=== PATIENT | female | born 1965 | race African-American/Black ===

== ENCOUNTER 2020-04-20 22:22 | Inpatient (IN) | payer MEDICAID ==
[~2020-04-20] VITALS: Ht 162.6 cm; Wt 89.5 kg
[~2020-04-20 22:22] MED LIST: CYM20 PO; HYDR-4134 PO; LOSA50TA3 PO; OXYC20TA56 PO
[2020-04-20] MEDS ORDERED: HYDROCODONE/ACETAMINOPHEN 10/325MG TABLET PO ONE (23:15)
[2020-04-20] MEDS: LIDOCAINE 5% PATCH TOP SCH (23:29)
[2020-04-20 23:32] LABS: BASOPHILS % 1.1 % (0.0-2.0); EOSINOPHILS % 8.2 % (0.0-5.0); HEMATOCRIT. 30.5 % (36.0-48.0); HEMOGLOBIN. 9.6 g/dL (12.0-16.0); LYMPHOCYTES % 27.9 % (20.0-50.0); MEAN CORPUSCULAR HEMOGLOBIN 22.7 pg (28.0-32.0); MEAN CORPUSCULAR VOLUME 72.5 fL (81.0-99.0); MONOCYTES % 5.6 % (2.0-8.0); NEUTROPHILS % 57.2 % (40.0-76.0); RED BLOOD CELL COUNT 4.21 mill/uL (4.2-5.4); RED CELL DISTRIBUTION WIDTH 28.1 % (11.6-14.6)
[2020-04-20 23:37] LABS: CHLORIDE 101 mEq/L (98-107)
[2020-04-21 00:20] LABS: PLATELET 110 x1000/uL (130-400)
[2020-04-21 00:21] LABS: PLATELET ESTIMATE DECREASED
[2020-04-21] MEDS ORDERED: CLONIDINE 0.3MG TABLET PO ONE (01:00)
[2020-04-21 08:48] LABS: BG BASE EXCESS -5.6 mmol/L (-2.0-2.0); BG DEOXYHEMOGLOBIN 18.8 % (0.0-5.0); BG FRACTION INSPIRED OXYGEN 21; BG HCO3 ACT 21.2 mmol/L (22.0-26.0); BG METHEMOGLOBIN 0.1 % (0.0-1.5); BG OXYGEN SATURATION 80.6 % (92.0-98.5); BG OXYHEMOGLOBIN 78.1 % (94.0-97.0); BG PCO2 47.2 mmHg (35.0-45.0); BG PH 7.271 (7.350-7.450); BG PO2 53.1 mmHg (75.0-100.0); BG SAMPLE SITE RIGHT BRACHIAL; BG TOTAL HEMOGLOBIN 10.8 g/dL (12.0-18.0); BG VENT MODE ROOM AIR
[2020-04-21] MEDS ORDERED: GUAIFENESIN 200MG/10ML SUGAR FREE UDC PO PRN (11:15)
[2020-04-21] MEDS ORDERED: ONDANSETRON HCL 4MG/2ML INJ IV PRN (11:15)
[2020-04-21] MEDS ORDERED: MAGNESIUM/ALUMINUM HYDROXIDE/SIMETHICONE 30ML UDC PO PRN (11:15)
[2020-04-21] MEDS ORDERED: NITROGLYCERIN 0.4MG TABLET SL SL PRN (11:15)
[2020-04-21] MEDS ORDERED: AZITHROMYCIN 500 MG in DEXT 5% WATER 250 ML IV SCH (12:00)
[2020-04-21] MEDS ORDERED: CEFTRIAXONE 1 G PREMIX 50 ML IV SCH (12:00)
[2020-04-21] MEDS ORDERED: ALBUTEROL 6.7GM HFA INHALER ORI PRN (12:00)
[2020-04-21] MEDS: LIDOCAINE 5% PATCH TOP SCH (13:27)
[2020-04-21] MEDS: ASCORBIC ACID 500 MG TABLET PO SCH ×2 (13:36→23:39)
[2020-04-21] MEDS: ASPIRIN 325MG EC TABLET PO SCH (13:41)
[2020-04-21] MEDS: ENOXAPARIN 40MG/0.4ML SYR SUBCUT SCH (13:41)
[2020-04-21] MEDS: FAMOTIDINE 20MG TABLET PO SCH (13:41)
[2020-04-21] MEDS: AMLODIPINE 10MG TABLET PO SCH (13:41)
[2020-04-21] MEDS: ZINC SULFATE 220 MG ( 50 ) CAPSULE PO SCH (13:41)
[2020-04-21] MEDS: SEVELAMER CARBONATE 800 MG TABLET PO SCH ×2 (13:42→17:14)
[2020-04-21] MEDS: HYDRALAZINE HCL 50MG TABLET PO SCH ×2 (15:06→23:38)
[2020-04-21] MEDS: CLONIDINE 0.1MG TABLET PO PRN (16:51)
[2020-04-21] MEDS ORDERED: ZOLPIDEM TARTRATE 5MG TABLET PO PRN (20:00)
[2020-04-21] MEDS ORDERED: FAMOTIDINE 20MG TABLET PO SCH (21:00)
[2020-04-21 22:45] VITALS: BP 128/77
[2020-04-22] VITALS: BP 128/77
[2020-04-22] MEDS ORDERED: TIZA2TAB5 PO (02:42)
[2020-04-22] MEDS ORDERED: PARO-66 PO (02:42)
[2020-04-22] MEDS ORDERED: GABA-531 PO (02:42)
[2020-04-22] MEDS ORDERED: CEPH250T PO (02:42)
[2020-04-22] MEDS ORDERED: CINA30TA5 PO (02:42)
[2020-04-22] MEDS ORDERED: DILT60TA3 PO (02:42)
[2020-04-22 04:00] VITALS: BP 178/81
[2020-04-22] MEDS: TRAMADOL 50MG TABLET PO PRN ×2 (05:35→21:01)
[2020-04-22] MEDS: HYDRALAZINE HCL 50MG TABLET PO SCH ×3 (06:09→22:00)
[2020-04-22 08:00] VITALS: BP 171/94
[2020-04-22] MEDS: AZITHROMYCIN 500 MG in DEXT 5% WATER 250 ML IV SCH (08:09)
[2020-04-22] MEDS: ASPIRIN 325MG EC TABLET PO SCH (08:40)
[2020-04-22] MEDS: AMLODIPINE 10MG TABLET PO SCH (08:40)
[2020-04-22] MEDS: ZINC SULFATE 220 MG ( 50 ) CAPSULE PO SCH (08:40)
[2020-04-22] MEDS: ASCORBIC ACID 500 MG TABLET PO SCH ×2 (08:40→20:55)
[2020-04-22] MEDS: FAMOTIDINE 20MG TABLET PO SCH (08:40)
[2020-04-22] MEDS: SEVELAMER CARBONATE 800 MG TABLET PO SCH ×3 (08:40→17:02)
[2020-04-22] MEDS: ENOXAPARIN 40MG/0.4ML SYR SUBCUT SCH (09:00)
[2020-04-22 09:26] LABS: BASOPHILS % 0.8 % (0.0-2.0); EOSINOPHILS % 9.6 % (0.0-5.0); HEMATOCRIT. 30.4 % (36.0-48.0); HEMOGLOBIN. 9.5 g/dL (12.0-16.0); LYMPHOCYTES % 35.2 % (20.0-50.0); MEAN CORPUSCULAR HEMOGLOBIN 22.7 pg (28.0-32.0); MEAN CORPUSCULAR VOLUME 72.8 fL (81.0-99.0); MEAN PLATELET VOLUME 8.3 fl (7.4-10.4); MONOCYTES % 5.5 % (2.0-8.0); NEUTROPHILS % 48.9 % (40.0-76.0); PLATELET 105 x1000/uL (130-400); RED BLOOD CELL COUNT 4.18 mill/uL (4.2-5.4); RED CELL DISTRIBUTION WIDTH 27.5 % (11.6-14.6)
[2020-04-22 09:31] LABS: CHLORIDE 101 mEq/L (98-107)
[2020-04-22] MEDS: CEFTRIAXONE 1,000 MG in DEXTROSE 5% WATER 50 ML IV SCH (09:35)
[2020-04-22 09:40] LABS: CREATINE KINASE 36 IU/L (26-192)
[2020-04-22 09:41] LABS: CREATINE KINASE MB FRACTION 2.3 ng/mL (0.5-3.6)
[2020-04-22 10:38] LABS: D-DIMER 1.35 mg/L FEU (<0.50); INR 1.1; PARTIAL THROMBOPLASTIN TIME 34.1 sec (23.4-31.0); PROTHROMBIN TIME 11.5 sec (9.6-11.0)
[2020-04-22 12:00] VITALS: BP 177/89
[2020-04-22 16:00] VITALS: BP 152/69
[2020-04-22] MEDS ORDERED: ALBUTEROL 6.7GM HFA INHALER ORI SCH (18:00)
[2020-04-22 20:00] VITALS: BP 177/78
[2020-04-22] MEDS: ALBUTEROL (0.083%) 2.5MG/3ML NEB HHN SCH (20:45)
[2020-04-22] MEDS ORDERED: ALBUTEROL (0.083%) 2.5MG/3ML NEB ONE (20:50)
[2020-04-23] VITALS (7 sets, daily range): BP systolic 161–213; BP diastolic 75–96
[2020-04-23] MEDS: ACETAMINOPHEN 325MG TABLET PO PRN (02:42)
[2020-04-23] MEDS: HYDRALAZINE HCL 50MG TABLET PO SCH ×2 (02:48→06:28)
[2020-04-23] MEDS: TRAMADOL 50MG TABLET PO PRN (02:54)
[2020-04-23] MEDS: ALBUTEROL (0.083%) 2.5MG/3ML NEB HHN SCH ×3 (04:40→20:20)
[2020-04-23] MEDS: SEVELAMER CARBONATE 800 MG TABLET PO SCH ×3 (06:21→16:46)
[2020-04-23 06:44] LABS: BASOPHILS % 0.8 % (0.0-2.0); EOSINOPHILS % 9.4 % (0.0-5.0); HEMATOCRIT. 30.2 % (36.0-48.0); HEMOGLOBIN. 9.2 g/dL (12.0-16.0); LYMPHOCYTES % 24.6 % (20.0-50.0); MEAN CORPUSCULAR HEMOGLOBIN 22.3 pg (28.0-32.0); MEAN CORPUSCULAR VOLUME 72.9 fL (81.0-99.0); MEAN PLATELET VOLUME 8.4 fl (7.4-10.4); MONOCYTES % 5.5 % (2.0-8.0); NEUTROPHILS % 59.7 % (40.0-76.0); PLATELET 103 x1000/uL (130-400); RED BLOOD CELL COUNT 4.14 mill/uL (4.2-5.4); RED CELL DISTRIBUTION WIDTH 26.9 % (11.6-14.6)
[2020-04-23 07:53] LABS: PHOSPHORUS 6.1 mg/dL (2.5-4.9)
[2020-04-23] MEDS: AZITHROMYCIN 500 MG in DEXT 5% WATER 250 ML IV SCH (08:11)
[2020-04-23] MEDS: ZINC SULFATE 220 MG ( 50 ) CAPSULE PO SCH (08:11)
[2020-04-23] MEDS: ASPIRIN 325MG EC TABLET PO SCH (08:11)
[2020-04-23] MEDS: FAMOTIDINE 20MG TABLET PO SCH (08:11)
[2020-04-23] MEDS: CEFTRIAXONE 1,000 MG in DEXTROSE 5% WATER 50 ML IV SCH (08:11)
[2020-04-23] MEDS: ENOXAPARIN 40MG/0.4ML SYR SUBCUT SCH (08:12)
[2020-04-23] MEDS: ASCORBIC ACID 500 MG TABLET PO SCH ×2 (08:12→21:04)
[2020-04-23] MEDS: AMLODIPINE 10MG TABLET PO SCH (08:31)
[2020-04-23] MEDS: MINOXIDIL 2.5MG TABLET PO SCH ×2 (09:15→21:05)
[2020-04-23] MEDS: CINACALCET HCL 30MG TABLET PO SCH (10:28)
[2020-04-23] MEDS: METOPROLOL TARTRATE 25MG TABLET PO SCH ×2 (10:28→21:04)
[2020-04-23] MEDS: LOSARTAN POTASSIUM 25 MG TABLET PO SCH (10:28)
[2020-04-23] MEDS: DIPHENHYDRAMINE 50MG/ML VIAL IV PRN (12:46)
[2020-04-23] MEDS: CLONIDINE 0.1MG TABLET PO PRN (14:39)
[2020-04-23] MEDS: NITROGLYCERIN OINT 1GM/INCH UDPKT TD SCH ×2 (16:46→21:05)
[2020-04-24] VITALS: BP 198/80
[2020-04-24] MEDS: TRAMADOL 50MG TABLET PO PRN (00:26)
[2020-04-24] MEDS: ACETAMINOPHEN 325MG TABLET PO PRN ×2 (00:46→08:07)
[2020-04-24] MEDS: ALBUTEROL (0.083%) 2.5MG/3ML NEB HHN SCH ×3 (02:25→22:05)
[2020-04-24 04:00] VITALS: BP 173/78
[2020-04-24] MEDS: NITROGLYCERIN OINT 1GM/INCH UDPKT TD SCH ×3 (07:02→22:46)
[2020-04-24] MEDS: SEVELAMER CARBONATE 800 MG TABLET PO SCH ×3 (07:02→17:07)
[2020-04-24] MEDS: CINACALCET HCL 30MG TABLET PO SCH (07:02)
[2020-04-24 07:55] VITALS: BP 184/86
[2020-04-24] MEDS: ENOXAPARIN 40MG/0.4ML SYR SUBCUT SCH (08:05)
[2020-04-24] MEDS: AZITHROMYCIN 500 MG in DEXT 5% WATER 250 ML IV SCH (08:05)
[2020-04-24 08:06] LABS: EOSINOPHILS % 9.8 % (0.0-5.0); HEMATOCRIT. 29.8 % (36.0-48.0); HEMOGLOBIN. 9.3 g/dL (12.0-16.0); LYMPHOCYTES % 20.4 % (20.0-50.0); MEAN CORPUSCULAR HEMOGLOBIN 22.4 pg (28.0-32.0); MEAN CORPUSCULAR VOLUME 71.8 fL (81.0-99.0); MONOCYTES % 5.7 % (2.0-8.0); NEUTROPHILS % 63.1 % (40.0-76.0); RED BLOOD CELL COUNT 4.15 mill/uL (4.2-5.4); RED CELL DISTRIBUTION WIDTH 26.9 % (11.6-14.6)
[2020-04-24] MEDS: MINOXIDIL 2.5MG TABLET PO SCH ×2 (08:06→21:00)
[2020-04-24] MEDS: ASCORBIC ACID 500 MG TABLET PO SCH ×2 (08:06→21:00)
[2020-04-24] MEDS: METOPROLOL TARTRATE 25MG TABLET PO SCH ×2 (08:06→21:00)
[2020-04-24] MEDS: FAMOTIDINE 20MG TABLET PO SCH (08:06)
[2020-04-24] MEDS: ASPIRIN 325MG EC TABLET PO SCH (08:06)
[2020-04-24] MEDS: LOSARTAN POTASSIUM 25 MG TABLET PO SCH ×2 (08:06→21:00)
[2020-04-24] MEDS: AMLODIPINE 10MG TABLET PO SCH (08:06)
[2020-04-24] MEDS: ZINC SULFATE 220 MG ( 50 ) CAPSULE PO SCH (08:06)
[2020-04-24 08:32] LABS: PHOSPHORUS 6.2 mg/dL (2.5-4.9)
[2020-04-24] MEDS ORDERED: MINOXIDIL 2.5MG TABLET PO NR (10:00)
[2020-04-24 10:44] LABS: PLATELET 107 x1000/uL (130-400)
[2020-04-24] MEDS: CEFTRIAXONE 1,000 MG in DEXTROSE 5% WATER 50 ML IV SCH (12:00)
[2020-04-24 16:00] VITALS: BP 150/73
[2020-04-24 20:00] VITALS: BP 178/88
[2020-04-25] VITALS (48 sets, daily range): BP systolic 82–200; BP diastolic 44–98
[2020-04-25] MEDS: CLONIDINE 0.1MG TABLET PO PRN (03:54)
[2020-04-25] MEDS: ALBUTEROL (0.083%) 2.5MG/3ML NEB HHN SCH ×5 (03:59→15:59)
[2020-04-25] MEDS: NITROGLYCERIN OINT 1GM/INCH UDPKT TD SCH ×3 (06:13→21:28)
[2020-04-25] MEDS: SEVELAMER CARBONATE 800 MG TABLET PO SCH ×4 (06:26→17:29)
[2020-04-25] MEDS: CINACALCET HCL 30MG TABLET PO SCH (06:26)
[2020-04-25 07:37] LABS: PHOSPHORUS 5.9 mg/dL (2.5-4.9)
[2020-04-25 07:39] LABS: EOSINOPHILS % 4.4 % (0.0-5.0); HEMATOCRIT. 30.7 % (36.0-48.0); HEMOGLOBIN. 9.7 g/dL (12.0-16.0); LYMPHOCYTES % 19.3 % (20.0-50.0); MEAN CORPUSCULAR HEMOGLOBIN 22.4 pg (28.0-32.0); MEAN CORPUSCULAR VOLUME 71.4 fL (81.0-99.0); MONOCYTES % 6.8 % (2.0-8.0); NEUTROPHILS % 68.5 % (40.0-76.0); RED CELL DISTRIBUTION WIDTH 26.1 % (11.6-14.6)
[2020-04-25] MEDS: CEFTRIAXONE 1,000 MG in DEXTROSE 5% WATER 50 ML IV SCH (09:05)
[2020-04-25] MEDS: AMLODIPINE 10MG TABLET PO SCH (09:06)
[2020-04-25] MEDS: MINOXIDIL 2.5MG TABLET PO SCH (09:06)
[2020-04-25] MEDS: FAMOTIDINE 20MG TABLET PO SCH (09:06)
[2020-04-25] MEDS: ENOXAPARIN 40MG/0.4ML SYR SUBCUT SCH (09:06)
[2020-04-25] MEDS: ASPIRIN 325MG EC TABLET PO SCH (09:06)
[2020-04-25] MEDS: ASCORBIC ACID 500 MG TABLET PO SCH ×2 (09:06→21:18)
[2020-04-25] MEDS: LOSARTAN POTASSIUM 25 MG TABLET PO SCH ×2 (09:07→21:17)
[2020-04-25] MEDS: METOPROLOL TARTRATE 25MG TABLET PO SCH ×2 (09:07→21:18)
[2020-04-25] MEDS: ZINC SULFATE 220 MG ( 50 ) CAPSULE PO SCH (09:07)
[2020-04-25] MEDS ORDERED: MINOXIDIL 2.5MG TABLET PO NR (09:50)
[2020-04-25] MEDS: AZITHROMYCIN 500 MG in DEXT 5% WATER 250 ML IV SCH (10:03)
[2020-04-25] MEDS ORDERED: HALOPERIDOL LACTATE 5MG/ML VIAL IM PRN (11:15)
[2020-04-25] MEDS ORDERED: LORAZEPAM 2MG/ML CPJ IV NR (11:30)
[2020-04-25 11:31] LABS: BG BASE EXCESS -1.7 mmol/L (-2.0-2.0); BG BILEVEL POS AIRWAY PRESSURE 15/5; BG CARBOXYHEMOGLOBIN 1.9 % (0.5-1.5); BG DEOXYHEMOGLOBIN 0.3 % (0.0-5.0); BG FRACTION INSPIRED OXYGEN 100; BG METHEMOGLOBIN 0.3 % (0.0-1.5); BG OXYGEN SATURATION 99.7 % (92.0-98.5); BG OXYHEMOGLOBIN 97.5 % (94.0-97.0); BG PCO2 38.6 mmHg (35.0-45.0); BG PH 7.393 (7.350-7.450); BG PO2 369.6 mmHg (75.0-100.0); BG SAMPLE SITE RIGHT RADIAL; BG TOTAL HEMOGLOBIN 11.2 g/dL (12.0-18.0); BG VENT MODE MASK - BIPAP
[2020-04-25] MEDS: PROPOFOL 10MG/ML 100ML 100 ML IV PRN ×3 (12:51→22:43)
[2020-04-25] MEDS ORDERED: CLONIDINE HCL 0.3MG/24HR PATCH TD SCH (13:00)
[2020-04-25 13:11] LABS: BG BASE EXCESS -2.7 mmol/L (-2.0-2.0); BG CARBOXYHEMOGLOBIN 2.2 % (0.5-1.5); BG DEOXYHEMOGLOBIN 2.5 % (0.0-5.0); BG FRACTION INSPIRED OXYGEN 60; BG HCO3 ACT 22.3 mmol/L (22.0-26.0); BG METHEMOGLOBIN 0.3 % (0.0-1.5); BG OXYGEN SATURATION 97.4 % (92.0-98.5); BG PCO2 39.7 mmHg (35.0-45.0); BG PH 7.368 (7.350-7.450); BG PO2 104.6 mmHg (75.0-100.0); BG SAMPLE SITE RIGHT RADIAL; BG TIDAL VOLUME(mL) 500 mL; BG TOTAL HEMOGLOBIN 11.6 g/dL (12.0-18.0); BG VENT MODE VENT - A/C; BG VENT RATE 18 set
[2020-04-25] MEDS: FENTANYL CITRATE/PF 1,000 MCG in SODIUM CHLORIDE 0.9% 80 ML IV PRN ×2 (13:20→22:24)
[2020-04-25 13:38] LABS: PLATELET ESTIMATE DECREASED
[2020-04-25 13:39] LABS: MEAN PLATELET VOLUME 8.5 fl (7.4-10.4); PLATELET 82 x1000/uL (130-400)
[2020-04-25] MEDS: ACETAMINOPHEN 325MG TABLET PO PRN (14:11)
[2020-04-25] MEDS ORDERED: RACEPINEPHRINE 2.25% 0.5ML NEB VIAL HHN PRN (14:15)
[2020-04-25] MEDS: PHENYLEPHRINE 100 MG in DEXT 5% WATER 240 ML IV PRN (15:42)
[2020-04-25] MEDS: MINOXIDIL 10MG TABLET PO SCH (21:17)
[2020-04-26] VITALS (76 sets, daily range): BP systolic 76–187; BP diastolic 38–78
[2020-04-26] MEDS: PROPOFOL 10MG/ML 100ML 100 ML IV PRN ×4 (04:27→21:47)
[2020-04-26] MEDS: NITROGLYCERIN OINT 1GM/INCH UDPKT TD SCH ×3 (06:37→21:21)
[2020-04-26] MEDS: FENTANYL CITRATE/PF 1,000 MCG in SODIUM CHLORIDE 0.9% 80 ML IV PRN ×2 (07:59→20:19)
[2020-04-26] MEDS: ASPIRIN 325MG EC TABLET PO SCH (08:08)
[2020-04-26] MEDS: ZINC SULFATE 220 MG ( 50 ) CAPSULE PO SCH (08:08)
[2020-04-26] MEDS: CINACALCET HCL 30MG TABLET PO SCH (08:08)
[2020-04-26] MEDS: ASCORBIC ACID 500 MG TABLET PO SCH ×2 (08:08→21:08)
[2020-04-26] MEDS: SEVELAMER CARBONATE 800 MG TABLET PO SCH ×3 (08:08→18:10)
[2020-04-26] MEDS: PANTOPRAZOLE SODIUM 40 MG/VIAL IV SCH (08:08)
[2020-04-26] MEDS: MINOXIDIL 10MG TABLET PO SCH ×2 (08:09→21:08)
[2020-04-26] MEDS: LOSARTAN POTASSIUM 25 MG TABLET PO SCH ×2 (08:09→21:00)
[2020-04-26] MEDS: AMLODIPINE 10MG TABLET PO SCH (08:10)
[2020-04-26] MEDS: ALBUTEROL (0.083%) 2.5MG/3ML NEB HHN SCH ×3 (08:45→21:34)
[2020-04-26] MEDS: METOPROLOL TARTRATE 25MG TABLET PO SCH ×2 (09:00→21:40)
[2020-04-26] MEDS ORDERED: VANCOMYCIN 2,000 MG in DEXT 5% WATER 500 ML IV SCH (10:00)
[2020-04-26 10:04] LABS: EOSINOPHILS % 8.4 % (0.0-5.0); HEMATOCRIT. 28.1 % (36.0-48.0); HEMOGLOBIN. 8.8 g/dL (12.0-16.0); LYMPHOCYTES % 17.1 % (20.0-50.0); MEAN CORPUSCULAR HEMOGLOBIN 22.1 pg (28.0-32.0); MEAN CORPUSCULAR VOLUME 70.6 fL (81.0-99.0); MEAN PLATELET VOLUME 8.2 fl (7.4-10.4); MONOCYTES % 8.4 % (2.0-8.0); NEUTROPHILS % 65.1 % (40.0-76.0); PLATELET 104 x1000/uL (130-400); RED BLOOD CELL COUNT 3.99 mill/uL (4.2-5.4); RED CELL DISTRIBUTION WIDTH 25.5 % (11.6-14.6)
[2020-04-26 11:21] LABS: BG BASE EXCESS -1.5 mmol/L (-2.0-2.0); BG DEOXYHEMOGLOBIN 3.1 % (0.0-5.0); BG HCO3 ACT 22.9 mmol/L (22.0-26.0); BG METHEMOGLOBIN 0.3 % (0.0-1.5); BG OXYGEN SATURATION 96.9 % (92.0-98.5); BG OXYHEMOGLOBIN 95.6 % (94.0-97.0); BG PCO2 37.2 mmHg (35.0-45.0); BG PH 7.407 (7.350-7.450); BG PO2 96.8 mmHg (75.0-100.0); BG SAMPLE SITE RIGHT BRACHIAL; BG TIDAL VOLUME(mL) 500 mL; BG TOTAL HEMOGLOBIN 9.6 g/dL (12.0-18.0); BG VENT MODE VENT - A/C; BG VENT RATE 18 set
[2020-04-26] MEDS: PIPERACILLIN/TAZOBACTAM 2.25 G in DEXTROSE 5% WATER 50 ML IV SCH ×2 (12:53→21:21)
[2020-04-26] MEDS: PHENYLEPHRINE 100 MG in DEXT 5% WATER 240 ML IV PRN (13:47)
[2020-04-27] VITALS (80 sets, daily range): BP systolic 82–145; BP diastolic 35–72
[2020-04-27] MEDS: ALBUTEROL (0.083%) 2.5MG/3ML NEB HHN SCH ×4 (01:19→20:31)
[2020-04-27] MEDS: PROPOFOL 10MG/ML 100ML 100 ML IV PRN ×3 (03:44→17:36)
[2020-04-27] MEDS: ACETAMINOPHEN 325MG TABLET PO PRN (03:58)
[2020-04-27] MEDS: PIPERACILLIN/TAZOBACTAM 2.25 G in DEXTROSE 5% WATER 50 ML IV SCH ×3 (05:16→21:01)
[2020-04-27] MEDS: NITROGLYCERIN OINT 1GM/INCH UDPKT TD SCH (05:17)
[2020-04-27] MEDS: FENTANYL CITRATE/PF 1,000 MCG in SODIUM CHLORIDE 0.9% 80 ML IV PRN (06:57)
[2020-04-27] MEDS ORDERED: ALBUMIN HUMAN 25GM/100ML (25%) IV NR (07:00)
[2020-04-27 07:46] LABS: HEMOGLOBIN. 9.1 g/dL (12.0-16.0); MEAN CORPUSCULAR HEMOGLOBIN 22.5 pg (28.0-32.0); MEAN CORPUSCULAR VOLUME 71.9 fL (81.0-99.0); MEAN PLATELET VOLUME 8.6 fl (7.4-10.4); PLATELET 106 x1000/uL (130-400); RED BLOOD CELL COUNT 4.03 mill/uL (4.2-5.4); RED CELL DISTRIBUTION WIDTH 25.3 % (11.6-14.6)
[2020-04-27 07:57] LABS: PHOSPHORUS 6.6 mg/dL (2.5-4.9)
[2020-04-27] MEDS: LOSARTAN POTASSIUM 25 MG TABLET PO SCH ×2 (08:08→20:44)
[2020-04-27] MEDS: METOPROLOL TARTRATE 25MG TABLET PO SCH ×2 (08:09→20:44)
[2020-04-27] MEDS: AMLODIPINE 10MG TABLET PO SCH (08:10)
[2020-04-27] MEDS: ASCORBIC ACID 500 MG TABLET PO SCH ×2 (08:19→20:26)
[2020-04-27] MEDS: CINACALCET HCL 30MG TABLET PO SCH (08:19)
[2020-04-27] MEDS: ZINC SULFATE 220 MG ( 50 ) CAPSULE PO SCH (08:19)
[2020-04-27] MEDS: SEVELAMER CARBONATE 800 MG TABLET PO SCH ×3 (08:19→17:37)
[2020-04-27] MEDS: PANTOPRAZOLE SODIUM 40 MG/VIAL IV SCH (08:19)
[2020-04-27] MEDS: ASPIRIN 325MG EC TABLET PO SCH (08:19)
[2020-04-27] MEDS ORDERED: VASOPRESSIN 20 UNIT in SODIUM CHLORIDE 0.9% 99 ML IV PRN (10:00)
[2020-04-27 10:48] LABS: PLATELET ESTIMATE DECREASED
[2020-04-27 11:59] LABS: BG BASE EXCESS -3.2 mmol/L (-2.0-2.0); BG CARBOXYHEMOGLOBIN 1.5 % (0.5-1.5); BG DEOXYHEMOGLOBIN 4.2 % (0.0-5.0); BG FRACTION INSPIRED OXYGEN 60; BG HCO3 ACT 22.5 mmol/L (22.0-26.0); BG METHEMOGLOBIN 0.3 % (0.0-1.5); BG OXYGEN SATURATION 95.7 % (92.0-98.5); BG PCO2 42.7 mmHg (35.0-45.0); BG PH 7.339 (7.350-7.450); BG PO2 90.2 mmHg (75.0-100.0); BG SAMPLE SITE RIGHT RADIAL; BG TIDAL VOLUME(mL) 500 mL; BG VENT MODE VENT - A/C; BG VENT RATE 18 set
[2020-04-27] MEDS: MINOXIDIL 10MG TABLET PO SCH ×2 (14:00→21:02)
[2020-04-27] MEDS ORDERED: VANCOMYCIN 1 G PREMIX 200 ML IV SCH (14:00)
[2020-04-27 14:08] LABS: BG BASE EXCESS -1.2 mmol/L (-2.0-2.0); BG CARBOXYHEMOGLOBIN 1.1 % (0.5-1.5); BG DEOXYHEMOGLOBIN 8.6 % (0.0-5.0); BG FRACTION INSPIRED OXYGEN 60; BG HCO3 ACT 24.4 mmol/L (22.0-26.0); BG METHEMOGLOBIN 0.3 % (0.0-1.5); BG OXYGEN SATURATION 91.3 % (92.0-98.5); BG PCO2 45.1 mmHg (35.0-45.0); BG PH 7.351 (7.350-7.450); BG PO2 69.6 mmHg (75.0-100.0); BG PRESSURE SUPPORT 14; BG SAMPLE SITE RIGHT RADIAL; BG TIDAL VOLUME(mL) 500 mL; BG VENT MODE VENT - SIMV; BG VENT RATE 12 set
[2020-04-27] MEDS: PHENYLEPHRINE 100 MG in DEXT 5% WATER 240 ML IV PRN (21:03)
[2020-04-28] VITALS (85 sets, daily range): BP systolic 73–131; BP diastolic 35–97
[2020-04-28] MEDS: ALBUTEROL (0.083%) 2.5MG/3ML NEB HHN SCH ×4 (00:48→20:14)
[2020-04-28] MEDS: PROPOFOL 10MG/ML 100ML 100 ML IV PRN ×2 (00:55→07:46)
[2020-04-28] MEDS: FENTANYL CITRATE/PF 1,000 MCG in SODIUM CHLORIDE 0.9% 80 ML IV PRN (00:59)
[2020-04-28] MEDS: PIPERACILLIN/TAZOBACTAM 2.25 G in DEXTROSE 5% WATER 50 ML IV SCH ×3 (05:10→21:23)
[2020-04-28] MEDS: MINOXIDIL 10MG TABLET PO SCH ×3 (05:11→21:23)
[2020-04-28 06:41] LABS: BASOPHILS % 0.8 % (0.0-2.0); EOSINOPHILS % 12.1 % (0.0-5.0); HEMATOCRIT. 28.3 % (36.0-48.0); HEMOGLOBIN. 8.7 g/dL (12.0-16.0); MEAN CORPUSCULAR HEMOGLOBIN 22.3 pg (28.0-32.0); MEAN CORPUSCULAR VOLUME 72.4 fL (81.0-99.0); MONOCYTES % 11.4 % (2.0-8.0); NEUTROPHILS % 49.7 % (40.0-76.0); RED BLOOD CELL COUNT 3.91 mill/uL (4.2-5.4); RED CELL DISTRIBUTION WIDTH 24.9 % (11.6-14.6)
[2020-04-28] MEDS: LOSARTAN POTASSIUM 25 MG TABLET PO SCH ×2 (08:55→20:51)
[2020-04-28] MEDS: METOPROLOL TARTRATE 25MG TABLET PO SCH ×2 (08:55→20:51)
[2020-04-28] MEDS: AMLODIPINE 10MG TABLET PO SCH (08:56)
[2020-04-28] MEDS: ASPIRIN 325MG EC TABLET PO SCH (09:04)
[2020-04-28] MEDS: CINACALCET HCL 30MG TABLET PO SCH (09:04)
[2020-04-28] MEDS: ASCORBIC ACID 500 MG TABLET PO SCH ×2 (09:04→20:51)
[2020-04-28] MEDS: PANTOPRAZOLE SODIUM 40 MG/VIAL IV SCH (09:04)
[2020-04-28] MEDS: ZINC SULFATE 220 MG ( 50 ) CAPSULE PO SCH (09:04)
[2020-04-28] MEDS: SEVELAMER CARBONATE 800 MG TABLET PO SCH ×3 (09:04→17:22)
[2020-04-28 10:13] LABS: MEAN PLATELET VOLUME 8.5 fl (7.4-10.4); PLATELET 128 x1000/uL (130-400); PLATELET ESTIMATE SLIGHTLY DECREASED
[2020-04-28 11:51] LABS: BG BASE EXCESS -4.4 mmol/L (-2.0-2.0); BG CARBOXYHEMOGLOBIN 1.1 % (0.5-1.5); BG DEOXYHEMOGLOBIN 3.3 % (0.0-5.0); BG FRACTION INSPIRED OXYGEN 60; BG HCO3 ACT 20.9 mmol/L (22.0-26.0); BG METHEMOGLOBIN 0.3 % (0.0-1.5); BG OXYGEN SATURATION 96.7 % (92.0-98.5); BG OXYHEMOGLOBIN 95.3 % (94.0-97.0); BG PCO2 39.2 mmHg (35.0-45.0); BG PH 7.345 (7.350-7.450); BG PO2 98.5 mmHg (75.0-100.0); BG SAMPLE SITE RIGHT RADIAL; BG TIDAL VOLUME(mL) 500 mL; BG TOTAL HEMOGLOBIN 9.3 g/dL (12.0-18.0); BG VENT MODE VENT - A/C; BG VENT RATE 16 set
[2020-04-28] MEDS: MIDAZOLAM HCL 100 MG in DEXT 5% WATER 80 ML IV PRN (12:05)
[2020-04-29] VITALS (110 sets, daily range): BP systolic 81–182; BP diastolic 31–79
[2020-04-29] MEDS: ALBUTEROL (0.083%) 2.5MG/3ML NEB HHN SCH ×4 (02:04→20:54)
[2020-04-29] MEDS: PHENYLEPHRINE 100 MG in DEXT 5% WATER 240 ML IV PRN (04:00)
[2020-04-29] MEDS: MIDAZOLAM HCL 100 MG in DEXT 5% WATER 80 ML IV PRN (04:51)
[2020-04-29] MEDS: MINOXIDIL 10MG TABLET PO SCH ×3 (05:15→22:00)
[2020-04-29] MEDS: PIPERACILLIN/TAZOBACTAM 2.25 G in DEXTROSE 5% WATER 50 ML IV SCH ×2 (05:18→14:19)
[2020-04-29 06:19] LABS: HEMATOCRIT. 29.8 % (36.0-48.0); HEMOGLOBIN. 9.3 g/dL (12.0-16.0); MEAN CORPUSCULAR HEMOGLOBIN 22.5 pg (28.0-32.0); MEAN CORPUSCULAR VOLUME 71.9 fL (81.0-99.0); MEAN PLATELET VOLUME 8.6 fl (7.4-10.4); PLATELET 169 x1000/uL (130-400); RED BLOOD CELL COUNT 4.14 mill/uL (4.2-5.4); RED CELL DISTRIBUTION WIDTH 23.8 % (11.6-14.6)
[2020-04-29 06:24] LABS: PHOSPHORUS 7.8 mg/dL (2.5-4.9)
[2020-04-29 08:28] LABS: ATYPICAL LYMPHOCYTES 1; PLATELET ESTIMATE NORMAL
[2020-04-29] MEDS: ASCORBIC ACID 500 MG TABLET PO SCH (08:42)
[2020-04-29] MEDS: CINACALCET HCL 30MG TABLET PO SCH (08:42)
[2020-04-29] MEDS: ASPIRIN 325MG EC TABLET PO SCH (08:42)
[2020-04-29] MEDS: ZINC SULFATE 220 MG ( 50 ) CAPSULE PO SCH (08:42)
[2020-04-29] MEDS: PANTOPRAZOLE SODIUM 40 MG/VIAL IV SCH (08:42)
[2020-04-29] MEDS: SEVELAMER CARBONATE 800 MG TABLET PO SCH ×3 (08:42→18:03)
[2020-04-29] MEDS: AMLODIPINE 10MG TABLET PO SCH (08:43)
[2020-04-29] MEDS: LOSARTAN POTASSIUM 25 MG TABLET PO SCH (08:43)
[2020-04-29] MEDS: METOPROLOL TARTRATE 25MG TABLET PO SCH (08:43)
[2020-04-29 08:57] LABS: BG BASE EXCESS -5.5 mmol/L (-2.0-2.0); BG CARBOXYHEMOGLOBIN 1.7 % (0.5-1.5); BG DEOXYHEMOGLOBIN 6.3 % (0.0-5.0); BG FRACTION INSPIRED OXYGEN 50; BG HCO3 ACT 19.7 mmol/L (22.0-26.0); BG METHEMOGLOBIN 0.1 % (0.0-1.5); BG OXYGEN SATURATION 93.6 % (92.0-98.5); BG OXYHEMOGLOBIN 91.9 % (94.0-97.0); BG PCO2 37.2 mmHg (35.0-45.0); BG PH 7.341 (7.350-7.450); BG PO2 76.1 mmHg (75.0-100.0); BG SAMPLE SITE RIGHT RADIAL; BG TIDAL VOLUME(mL) 500 mL; BG TOTAL HEMOGLOBIN 10.3 g/dL (12.0-18.0); BG VENT MODE VENT - A/C; BG VENT RATE 16 set
[2020-04-29] MEDS: FENTANYL CITRATE/PF 1,000 MCG in SODIUM CHLORIDE 0.9% 80 ML IV PRN (15:44)
[2020-04-29] MEDS ORDERED: ALTEPLASE 2MG/VIAL ITC NR (18:45)
[2020-04-30] VITALS (123 sets, daily range): BP systolic 74–191; BP diastolic 28–130
[2020-04-30] MEDS: ASCORBIC ACID 500 MG TABLET PO SCH ×3 (00:45→22:06)
[2020-04-30] MEDS: PIPERACILLIN/TAZOBACTAM 2.25 G in DEXTROSE 5% WATER 50 ML IV SCH ×4 (00:49→22:06)
[2020-04-30] MEDS: ALBUTEROL (0.083%) 2.5MG/3ML NEB HHN SCH ×2 (02:00→09:05)
[2020-04-30] MEDS: PHENYLEPHRINE 100 MG in DEXT 5% WATER 240 ML IV PRN (02:56)
[2020-04-30] MEDS: MINOXIDIL 10MG TABLET PO SCH (05:58)
[2020-04-30 07:50] LABS: BASOPHILS % 1.3 % (0.0-2.0); EOSINOPHILS % 11.9 % (0.0-5.0); HEMATOCRIT. 30.7 % (36.0-48.0); HEMOGLOBIN. 9.6 g/dL (12.0-16.0); LYMPHOCYTES % 20.3 % (20.0-50.0); MEAN CORPUSCULAR HEMOGLOBIN 22.4 pg (28.0-32.0); MEAN CORPUSCULAR VOLUME 71.7 fL (81.0-99.0); MEAN PLATELET VOLUME 8.3 fl (7.4-10.4); MONOCYTES % 9.5 % (2.0-8.0); PLATELET 219 x1000/uL (130-400); RED BLOOD CELL COUNT 4.28 mill/uL (4.2-5.4); RED CELL DISTRIBUTION WIDTH 24.4 % (11.6-14.6)
[2020-04-30 08:06] LABS: BG BASE EXCESS -1.8 mmol/L (-2.0-2.0); BG CARBOXYHEMOGLOBIN 0.4 % (0.5-1.5); BG DEOXYHEMOGLOBIN 7.5 % (0.0-5.0); BG FRACTION INSPIRED OXYGEN 50; BG HCO3 ACT 23.1 mmol/L (22.0-26.0); BG METHEMOGLOBIN 0.3 % (0.0-1.5); BG OXYGEN SATURATION 92.4 % (92.0-98.5); BG OXYHEMOGLOBIN 91.8 % (94.0-97.0); BG PCO2 39.7 mmHg (35.0-45.0); BG PH 7.382 (7.350-7.450); BG PO2 72.3 mmHg (75.0-100.0); BG SAMPLE SITE RIGHT RADIAL; BG TIDAL VOLUME(mL) 500 mL; BG VENT MODE VENT - A/C; BG VENT RATE 16 set
[2020-04-30] MEDS: ASPIRIN 325MG EC TABLET PO SCH (09:44)
[2020-04-30] MEDS: PANTOPRAZOLE SODIUM 40 MG/VIAL IV SCH (09:44)
[2020-04-30] MEDS: CINACALCET HCL 30MG TABLET PO SCH (09:47)
[2020-04-30] MEDS: ZINC SULFATE 220 MG ( 50 ) CAPSULE PO SCH (09:47)
[2020-04-30] MEDS: MIDODRINE HCL 5MG TABLET NG SCH ×3 (09:47→17:39)
[2020-04-30] MEDS: SEVELAMER CARBONATE 800 MG TABLET PO SCH ×3 (09:47→17:38)
[2020-04-30] MEDS: MIDAZOLAM HCL 100 MG in DEXT 5% WATER 80 ML IV PRN (17:39)
[2020-05-01] VITALS (100 sets, daily range): BP systolic 73–240; BP diastolic 21–127
[2020-05-01 05:52] LABS: HEMATOCRIT. 27.1 % (36.0-48.0); HEMOGLOBIN. 8.5 g/dL (12.0-16.0); MEAN CORPUSCULAR HEMOGLOBIN 22.3 pg (28.0-32.0); MEAN CORPUSCULAR VOLUME 71.3 fL (81.0-99.0); MEAN PLATELET VOLUME 8.8 fl (7.4-10.4); PLATELET 197 x1000/uL (130-400); RED BLOOD CELL COUNT 3.81 mill/uL (4.2-5.4); RED CELL DISTRIBUTION WIDTH 23.8 % (11.6-14.6)
[2020-05-01 06:00] LABS: PHOSPHORUS 7.5 mg/dL (2.5-4.9)
[2020-05-01] MEDS: PIPERACILLIN/TAZOBACTAM 2.25 G in DEXTROSE 5% WATER 50 ML IV SCH ×3 (06:04→23:13)
[2020-05-01] MEDS: FENTANYL CITRATE/PF 1,000 MCG in SODIUM CHLORIDE 0.9% 80 ML IV PRN (06:06)
[2020-05-01] MEDS: ALBUTEROL (0.083%) 2.5MG/3ML NEB HHN SCH ×3 (08:17→20:38)
[2020-05-01] MEDS: ZINC SULFATE 220 MG ( 50 ) CAPSULE PO SCH (08:38)
[2020-05-01] MEDS: ASPIRIN 325MG EC TABLET PO SCH (08:38)
[2020-05-01] MEDS: SEVELAMER CARBONATE 800 MG TABLET PO SCH ×3 (08:38→17:50)
[2020-05-01] MEDS: CINACALCET HCL 30MG TABLET PO SCH (08:39)
[2020-05-01] MEDS: ASCORBIC ACID 500 MG TABLET PO SCH ×2 (08:39→21:25)
[2020-05-01] MEDS: MIDODRINE HCL 5MG TABLET NG SCH ×3 (08:39→17:10)
[2020-05-01] MEDS: PANTOPRAZOLE SODIUM 40 MG/VIAL IV SCH (08:40)
[2020-05-01] MEDS ORDERED: HEPARIN SODIUM 1,000 UNIT/1ML VIAL IV SCH ×2 (13:00)
[2020-05-01 13:14] LABS: PLATELET ESTIMATE NORMAL
[2020-05-01] MEDS: PHENYLEPHRINE 100 MG in DEXT 5% WATER 240 ML IV PRN (14:10)
[2020-05-02] VITALS (52 sets, daily range): BP systolic 88–151; BP diastolic 24–108
[2020-05-02] MEDS: ALBUTEROL (0.083%) 2.5MG/3ML NEB HHN SCH ×4 (01:23→21:53)
[2020-05-02] MEDS: FENTANYL CITRATE/PF 1,000 MCG in SODIUM CHLORIDE 0.9% 80 ML IV PRN ×2 (02:00→16:14)
[2020-05-02 06:40] LABS: EOSINOPHILS % 16.1 % (0.0-5.0); HEMATOCRIT. 28.8 % (36.0-48.0); HEMOGLOBIN. 9.1 g/dL (12.0-16.0); LYMPHOCYTES % 23.3 % (20.0-50.0); MEAN CORPUSCULAR HEMOGLOBIN 22.6 pg (28.0-32.0); MEAN CORPUSCULAR VOLUME 71.6 fL (81.0-99.0); MEAN PLATELET VOLUME 8.3 fl (7.4-10.4); MONOCYTES % 6.7 % (2.0-8.0); NEUTROPHILS % 52.9 % (40.0-76.0); PLATELET 185 x1000/uL (130-400); RED BLOOD CELL COUNT 4.02 mill/uL (4.2-5.4); RED CELL DISTRIBUTION WIDTH 22.6 % (11.6-14.6)
[2020-05-02 07:07] LABS: PHOSPHORUS 6.5 mg/dL (2.5-4.9)
[2020-05-02] MEDS: MIDAZOLAM HCL 100 MG in DEXT 5% WATER 80 ML IV PRN (07:23)
[2020-05-02] MEDS: CINACALCET HCL 30MG TABLET PO SCH (08:17)
[2020-05-02] MEDS: DOCUSATE SODIUM 100MG CAPSULE PO PRN (08:17)
[2020-05-02] MEDS: PANTOPRAZOLE SODIUM 40 MG/VIAL IV SCH (08:17)
[2020-05-02] MEDS: ZINC SULFATE 220 MG ( 50 ) CAPSULE PO SCH (08:18)
[2020-05-02] MEDS: SEVELAMER CARBONATE 800 MG TABLET PO SCH ×4 (08:18→17:41)
[2020-05-02] MEDS: ASCORBIC ACID 500 MG TABLET PO SCH ×2 (08:18→21:12)
[2020-05-02] MEDS: ASPIRIN 325MG EC TABLET PO SCH (08:18)
[2020-05-02] MEDS: MIDODRINE HCL 5MG TABLET NG SCH ×3 (08:18→16:13)
[2020-05-02 08:49] LABS: BG BASE EXCESS -0.6 mmol/L (-2.0-2.0); BG CARBOXYHEMOGLOBIN 1.4 % (0.5-1.5); BG DEOXYHEMOGLOBIN 3.8 % (0.0-5.0); BG FRACTION INSPIRED OXYGEN 40; BG HCO3 ACT 23.6 mmol/L (22.0-26.0); BG METHEMOGLOBIN 0.1 % (0.0-1.5); BG OXYGEN SATURATION 96.1 % (92.0-98.5); BG OXYHEMOGLOBIN 94.7 % (94.0-97.0); BG PCO2 36.4 mmHg (35.0-45.0); BG PH 7.429 (7.350-7.450); BG PO2 90.5 mmHg (75.0-100.0); BG SAMPLE SITE RIGHT BRACHIAL; BG TIDAL VOLUME(mL) 500 mL; BG TOTAL HEMOGLOBIN 9.2 g/dL (12.0-18.0); BG VENT MODE VENT - A/C; BG VENT RATE 16 set
[2020-05-02] MEDS ORDERED: PIPERACILLIN/TAZOBACTAM 2.25 G in DEXTROSE 5% WATER 50 ML IV SCH (14:45)
[2020-05-02] MEDS ORDERED: IOHEXOL-350 100 ML BOTTLE ONE (14:59)
[2020-05-02] MEDS: PIPERACILLIN/TAZOBACTAM 2.25 G in DEXTROSE 5% WATER 50 ML IV SCH ×2 (16:13→23:38)
[2020-05-02] MEDS ORDERED: EPOETIN ALFA 4000UNITS/ML VIAL SUBCUT SCH (21:00)
[2020-05-03] VITALS (76 sets, daily range): BP systolic 77–166; BP diastolic 33–97
[2020-05-03] MEDS: ALBUTEROL (0.083%) 2.5MG/3ML NEB HHN SCH ×4 (04:14→21:03)
[2020-05-03] MEDS: PIPERACILLIN/TAZOBACTAM 2.25 G in DEXTROSE 5% WATER 50 ML IV SCH ×3 (06:00→21:35)
[2020-05-03] MEDS: MIDAZOLAM HCL 100 MG in DEXT 5% WATER 80 ML IV PRN (07:05)
[2020-05-03 07:24] LABS: BASOPHILS % 1.1 % (0.0-2.0); EOSINOPHILS % 10.8 % (0.0-5.0); HEMATOCRIT. 26.7 % (36.0-48.0); HEMOGLOBIN. 8.5 g/dL (12.0-16.0); LYMPHOCYTES % 25.8 % (20.0-50.0); MEAN CORPUSCULAR HEMOGLOBIN 22.5 pg (28.0-32.0); MEAN CORPUSCULAR VOLUME 70.7 fL (81.0-99.0); MEAN PLATELET VOLUME 8.4 fl (7.4-10.4); MONOCYTES % 6.4 % (2.0-8.0); NEUTROPHILS % 55.9 % (40.0-76.0); PLATELET 189 x1000/uL (130-400); RED BLOOD CELL COUNT 3.78 mill/uL (4.2-5.4); RED CELL DISTRIBUTION WIDTH 23.5 % (11.6-14.6)
[2020-05-03 07:38] LABS: PHOSPHORUS 6.7 mg/dL (2.5-4.9)
[2020-05-03] MEDS: MIDODRINE HCL 5MG TABLET NG SCH ×4 (09:00→17:24)
[2020-05-03] MEDS: ZINC SULFATE 220 MG ( 50 ) CAPSULE PO SCH (09:18)
[2020-05-03] MEDS: ASPIRIN 325MG EC TABLET PO SCH (09:18)
[2020-05-03] MEDS: CINACALCET HCL 30MG TABLET PO SCH (09:18)
[2020-05-03] MEDS: ASCORBIC ACID 500 MG TABLET PO SCH ×2 (09:18→21:14)
[2020-05-03] MEDS: PANTOPRAZOLE SODIUM 40 MG/VIAL IV SCH (09:18)
[2020-05-03] MEDS ORDERED: METOPROLOL TARTRATE 50MG TABLET PO SCH (09:45)
[2020-05-03] MEDS: PHENYLEPHRINE 100 MG in DEXT 5% WATER 240 ML IV PRN (11:34)
[2020-05-03] MEDS: SEVELAMER CARBONATE 800 MG TABLET PO SCH ×2 (12:24→17:23)
[2020-05-03] MEDS: FENTANYL CITRATE/PF 1,000 MCG in SODIUM CHLORIDE 0.9% 80 ML IV PRN (14:04)
[2020-05-03] MEDS: METOPROLOL TARTRATE 25MG TABLET GT SCH (21:00)
[2020-05-04] VITALS (83 sets, daily range): BP systolic 88–162; BP diastolic 41–118
[2020-05-04] MEDS: ALBUTEROL (0.083%) 2.5MG/3ML NEB HHN SCH ×2 (02:46→08:45)
[2020-05-04] MEDS: LORAZEPAM 2MG/ML CPJ IV PRN (03:27)
[2020-05-04] MEDS: PIPERACILLIN/TAZOBACTAM 2.25 G in DEXTROSE 5% WATER 50 ML IV SCH ×3 (06:26→22:00)
[2020-05-04 06:57] LABS: BASOPHILS % 1.1 % (0.0-2.0); EOSINOPHILS % 9.9 % (0.0-5.0); HEMATOCRIT. 25.4 % (36.0-48.0); HEMOGLOBIN. 8.1 g/dL (12.0-16.0); LYMPHOCYTES % 24.3 % (20.0-50.0); MEAN CORPUSCULAR HEMOGLOBIN 22.5 pg (28.0-32.0); MEAN CORPUSCULAR VOLUME 70.5 fL (81.0-99.0); MEAN PLATELET VOLUME 8.9 fl (7.4-10.4); MONOCYTES % 7.3 % (2.0-8.0); NEUTROPHILS % 57.4 % (40.0-76.0); PLATELET 190 x1000/uL (130-400); RED BLOOD CELL COUNT 3.61 mill/uL (4.2-5.4); RED CELL DISTRIBUTION WIDTH 23.8 % (11.6-14.6)
[2020-05-04 07:11] LABS: PHOSPHORUS 7.4 mg/dL (2.5-4.9)
[2020-05-04] MEDS: SEVELAMER CARBONATE 800 MG TABLET PO SCH ×3 (08:43→17:57)
[2020-05-04] MEDS: CINACALCET HCL 30MG TABLET PO SCH (08:44)
[2020-05-04] MEDS: ASCORBIC ACID 500 MG TABLET PO SCH ×2 (08:44→21:00)
[2020-05-04] MEDS: ASPIRIN 325MG EC TABLET PO SCH (08:44)
[2020-05-04] MEDS: METOPROLOL TARTRATE 25MG TABLET GT SCH ×2 (08:44→21:28)
[2020-05-04] MEDS: MIDODRINE HCL 5MG TABLET NG SCH ×3 (08:55→17:58)
[2020-05-04] MEDS: ZINC SULFATE 220 MG ( 50 ) CAPSULE PO SCH (08:55)
[2020-05-04] MEDS: PANTOPRAZOLE SODIUM 40 MG/VIAL IV SCH (08:56)
[2020-05-04] MEDS ORDERED: IPRATROPIUM/ALBUTEROL 0.5-3(2.5)MG/3ML NEB HHN PRN (11:45)
[2020-05-04] MEDS: IPRATROPIUM BROMIDE (0.02%) 0.5MG/2.5ML NEB HHN SCH ×3 (12:59→20:27)
[2020-05-04] MEDS: ACETYLCYSTEINE 100MG/ML 10% VIAL 4ML INH SCH (12:59)
[2020-05-04] MEDS: ATROPINE SULFATE 1% OPHTH 2ML SL SCH ×2 (14:17→22:00)
[2020-05-04] MEDS: MIDAZOLAM HCL 100 MG in DEXT 5% WATER 80 ML IV PRN (14:42)
[2020-05-04] MEDS: FENTANYL CITRATE/PF 1,000 MCG in SODIUM CHLORIDE 0.9% 80 ML IV PRN (14:45)
[2020-05-04] MEDS: RISPERIDONE 0.25MG TABLET PO SCH (21:29)
[2020-05-05] VITALS (79 sets, daily range): BP systolic 83–164; BP diastolic 45–91
[2020-05-05] MEDS: IPRATROPIUM BROMIDE (0.02%) 0.5MG/2.5ML NEB HHN SCH ×6 (00:23→20:01)
[2020-05-05] MEDS: ACETYLCYSTEINE 100MG/ML 10% VIAL 4ML INH SCH ×2 (00:23→08:21)
[2020-05-05 05:54] LABS: HEMATOCRIT. 25.9 % (36.0-48.0); HEMOGLOBIN. 8.2 g/dL (12.0-16.0); MEAN CORPUSCULAR HEMOGLOBIN 22.4 pg (28.0-32.0); MEAN CORPUSCULAR VOLUME 71.1 fL (81.0-99.0); MEAN PLATELET VOLUME 8.5 fl (7.4-10.4); PLATELET 194 x1000/uL (130-400); RED BLOOD CELL COUNT 3.64 mill/uL (4.2-5.4); RED CELL DISTRIBUTION WIDTH 23.2 % (11.6-14.6)
[2020-05-05] MEDS: PIPERACILLIN/TAZOBACTAM 2.25 G in DEXTROSE 5% WATER 50 ML IV SCH ×3 (06:00→21:02)
[2020-05-05] MEDS: ATROPINE SULFATE 1% OPHTH 2ML SL SCH ×2 (06:00→14:25)
[2020-05-05 06:13] LABS: PHOSPHORUS 7.9 mg/dL (2.5-4.9)
[2020-05-05] MEDS: FENTANYL CITRATE/PF 1,000 MCG in SODIUM CHLORIDE 0.9% 80 ML IV PRN (08:12)
[2020-05-05] MEDS: MIDAZOLAM HCL 100 MG in DEXT 5% WATER 80 ML IV PRN (08:13)
[2020-05-05] MEDS: ASCORBIC ACID 500 MG TABLET PO SCH ×2 (08:26→20:57)
[2020-05-05] MEDS: SEVELAMER CARBONATE 800 MG TABLET PO SCH ×3 (08:26→17:52)
[2020-05-05] MEDS: ZINC SULFATE 220 MG ( 50 ) CAPSULE PO SCH (08:26)
[2020-05-05] MEDS: ASPIRIN 325MG EC TABLET PO SCH (08:26)
[2020-05-05] MEDS: MIDODRINE HCL 5MG TABLET NG SCH ×3 (08:27→17:52)
[2020-05-05] MEDS: CINACALCET HCL 30MG TABLET PO SCH (08:27)
[2020-05-05] MEDS: PANTOPRAZOLE SODIUM 40 MG/VIAL IV SCH (08:27)
[2020-05-05] MEDS: METOPROLOL TARTRATE 25MG TABLET GT SCH ×2 (08:27→20:58)
[2020-05-05 08:28] LABS: BG BASE EXCESS -2.9 mmol/L (-2.0-2.0); BG FRACTION INSPIRED OXYGEN 40; BG HCO3 ACT 21.5 mmol/L (22.0-26.0); BG METHEMOGLOBIN 0.3 % (0.0-1.5); BG OXYHEMOGLOBIN 96.7 % (94.0-97.0); BG PCO2 35.4 mmHg (35.0-45.0); BG PH 7.401 (7.350-7.450); BG PO2 123.6 mmHg (75.0-100.0); BG SAMPLE SITE RIGHT RADIAL; BG TIDAL VOLUME(mL) 500 mL; BG TOTAL HEMOGLOBIN 7.8 g/dL (12.0-18.0); BG VENT MODE VENT - A/C; BG VENT RATE 14 set
[2020-05-05] MEDS ORDERED: LIDOCAINE HCL 1% 20ML VIAL (Pyxis) INJ ONE (08:45)
[2020-05-05 11:20] LABS: PLATELET ESTIMATE NORMAL
[2020-05-05 11:41] LABS: BG BASE EXCESS -2.4 mmol/L (-2.0-2.0); BG CARBOXYHEMOGLOBIN 1.2 % (0.5-1.5); BG FRACTION INSPIRED OXYGEN 40; BG HCO3 ACT 22.9 mmol/L (22.0-26.0); BG METHEMOGLOBIN 0.3 % (0.0-1.5); BG OXYGEN SATURATION 92.9 % (92.0-98.5); BG OXYHEMOGLOBIN 91.5 % (94.0-97.0); BG PCO2 41.6 mmHg (35.0-45.0); BG PH 7.358 (7.350-7.450); BG PO2 78.1 mmHg (75.0-100.0); BG PRESSURE SUPPORT 8; BG SAMPLE SITE RIGHT BRACHIAL; BG TOTAL HEMOGLOBIN 8.1 g/dL (12.0-18.0); BG VENT MODE VENT - CPAP
[2020-05-05] MEDS: METOCLOPRAMIDE HCL 10MG/2ML VIAL IV SCH ×3 (12:17→23:18)
[2020-05-05] MEDS ORDERED: RACEPINEPHRINE 2.25% 0.5ML NEB VIAL HHN PRN (12:30)
[2020-05-05] MEDS: RISPERIDONE 0.25MG TABLET PO SCH (20:58)
[2020-05-05] MEDS: LORAZEPAM 2MG/ML CPJ IV PRN (21:02)
[2020-05-06] VITALS (31 sets, daily range): BP systolic 94–180; BP diastolic 50–97
[2020-05-06] MEDS: IPRATROPIUM BROMIDE (0.02%) 0.5MG/2.5ML NEB HHN SCH ×4 (00:09→12:08)
[2020-05-06] MEDS: LORAZEPAM 2MG/ML CPJ IV PRN ×2 (01:24→09:02)
[2020-05-06] MEDS: DIPHENHYDRAMINE 50MG/ML VIAL IV PRN (03:36)
[2020-05-06] MEDS: METOCLOPRAMIDE HCL 10MG/2ML VIAL IV SCH ×2 (06:00→12:29)
[2020-05-06 08:34] LABS: BASOPHILS % 0.8 % (0.0-2.0); EOSINOPHILS % 6.1 % (0.0-5.0); HEMATOCRIT. 28.5 % (36.0-48.0); HEMOGLOBIN. 9.1 g/dL (12.0-16.0); LYMPHOCYTES % 15.6 % (20.0-50.0); MEAN CORPUSCULAR HEMOGLOBIN 22.6 pg (28.0-32.0); MEAN CORPUSCULAR VOLUME 70.7 fL (81.0-99.0); MEAN PLATELET VOLUME 8.3 fl (7.4-10.4); MONOCYTES % 4.6 % (2.0-8.0); NEUTROPHILS % 72.9 % (40.0-76.0); PLATELET 210 x1000/uL (130-400); RED BLOOD CELL COUNT 4.03 mill/uL (4.2-5.4); RED CELL DISTRIBUTION WIDTH 23.5 % (11.6-14.6)
[2020-05-06 08:41] LABS: PHOSPHORUS 3.9 mg/dL (2.5-4.9)
[2020-05-06] MEDS: PANTOPRAZOLE SODIUM 40 MG/VIAL IV SCH (08:59)
[2020-05-06] MEDS: SEVELAMER CARBONATE 800 MG TABLET PO SCH ×2 (08:59→12:29)
[2020-05-06] MEDS: PIPERACILLIN/TAZOBACTAM 2.25 G in DEXTROSE 5% WATER 50 ML IV SCH ×2 (08:59→15:12)
[2020-05-06] MEDS: CINACALCET HCL 30MG TABLET PO SCH (08:59)
[2020-05-06] MEDS: METOPROLOL TARTRATE 25MG TABLET GT SCH (09:00)
[2020-05-06] MEDS: ZINC SULFATE 220 MG ( 50 ) CAPSULE PO SCH (09:00)
[2020-05-06] MEDS: ASPIRIN 325MG EC TABLET PO SCH (09:00)
[2020-05-06] MEDS: MIDODRINE HCL 5MG TABLET NG SCH (09:00)
[2020-05-06] MEDS: ASCORBIC ACID 500 MG TABLET PO SCH (09:00)
[2020-05-06] MEDS: DOCUSATE SODIUM 100MG CAPSULE PO PRN (09:02)
[2020-05-06] MEDS ORDERED: ETOMIDATE 2MG/ML 10ML VIAL IV ONE (09:40)
[2020-05-06] MEDS ORDERED: VECURONIUM BROMIDE 10 MG/VIAL IV ONE (09:40)
[2020-05-06 10:56] LABS: BG BASE EXCESS 1.1 mmol/L (-2.0-2.0); BG CARBOXYHEMOGLOBIN 0.3 % (0.5-1.5); BG DEOXYHEMOGLOBIN 2.3 % (0.0-5.0); BG HCO3 ACT 25.5 mmol/L (22.0-26.0); BG METHEMOGLOBIN 0.3 % (0.0-1.5); BG OXYGEN SATURATION 97.7 % (92.0-98.5); BG OXYHEMOGLOBIN 97.1 % (94.0-97.0); BG PCO2 39.6 mmHg (35.0-45.0); BG PH 7.426 (7.350-7.450); BG PO2 111.2 mmHg (75.0-100.0); BG SAMPLE SITE RIGHT RADIAL; BG TIDAL VOLUME(mL) 500 mL; BG TOTAL HEMOGLOBIN 9.7 g/dL (12.0-18.0); BG VENT MODE VENT - A/C; BG VENT RATE 14 set
[2020-05-06] MEDS ORDERED: MIDODRINE HCL 5MG TABLET NG SCH (13:00)
[2020-05-06] MEDS ORDERED: ACETYLCYSTEINE 100MG/ML 10% VIAL 4ML INH SCH (14:00)
== END 2020-05-06 16:25 | disposition short-term general hospital (02) | DRG 720 ==
LOC: ER 22:22 → 7WST 04-21 10:14 → EDBEDREQ 04-21 10:16 → ENRESERV 04-21 20:44 → 5WST 04-22 14:50 → CVICU 04-25 12:04
PROVIDERS: ADMIT Internal Medicine; ATTEND Internal Medicine
PROC: 06HY33Z Insertion of Infusion Device into Lower Vein, Percutaneous Approach (ICD-10-PCS; 2020-04-22)
PROC: B54BZZA Ultrasonography of Right Lower Extremity Veins, Guidance (ICD-10-PCS; 2020-04-22)
PROC: 5A1D70Z Performance of Urinary Filtration, Intermittent, Less than 6 Hours Per Day (ICD-10-PCS; 2020-04-22)
PROC: 5A1D70Z Performance of Urinary Filtration, Intermittent, Less than 6 Hours Per Day (ICD-10-PCS; 2020-04-23)
PROC: 5A1955Z Respiratory Ventilation, Greater than 96 Consecutive Hours (ICD-10-PCS; principal; 2020-04-25)
PROC: 0BH18EZ Insertion of Endotracheal Airway into Trachea, Via Natural or Artificial Opening Endoscopic (ICD-10-PCS; 2020-04-25)
PROC: 5A09357 Assistance with Respiratory Ventilation, Less than 24 Consecutive Hours, Continuous Positive Airway Pressure (ICD-10-PCS; 2020-04-25)
PROC: 5A1D70Z Performance of Urinary Filtration, Intermittent, Less than 6 Hours Per Day (ICD-10-PCS; 2020-04-27)
PROC: 5A1D70Z Performance of Urinary Filtration, Intermittent, Less than 6 Hours Per Day (ICD-10-PCS; 2020-04-29)
PROC: 5A1D70Z Performance of Urinary Filtration, Intermittent, Less than 6 Hours Per Day (ICD-10-PCS; 2020-05-01)
PROC: 06HY33Z Insertion of Infusion Device into Lower Vein, Percutaneous Approach (ICD-10-PCS; 2020-05-05)
PROC: B54BZZA Ultrasonography of Right Lower Extremity Veins, Guidance (ICD-10-PCS; 2020-05-05)
PROC: 5A1D70Z Performance of Urinary Filtration, Intermittent, Less than 6 Hours Per Day (ICD-10-PCS; 2020-05-05)
DX: A41.9 Sepsis, unspecified organism (principal); J96.01 Acute respiratory failure with hypoxia; I12.0 Hypertensive chronic kidney disease with stage 5 chronic kidney disease or end stage renal disease; N18.6 End stage renal disease; Z20.828 Contact with and (suspected) exposure to other viral communicable diseases; E78.5 Hyperlipidemia, unspecified; E11.22 Type 2 diabetes mellitus with diabetic chronic kidney disease; D63.8 Anemia in other chronic diseases classified elsewhere; E83.52 Hypercalcemia; F17.200 Nicotine dependence, unspecified, uncomplicated; I16.1 Hypertensive emergency; E87.2 Acidosis; J96.02 Acute respiratory failure with hypercapnia; M79.7 Fibromyalgia; I51.7 Cardiomegaly; L97.529 Non-pressure chronic ulcer of other part of left foot with unspecified severity; M54.9 Dorsalgia, unspecified; D69.6 Thrombocytopenia, unspecified; L89.156 Pressure-induced deep tissue damage of sacral region; E11.51 Type 2 diabetes mellitus with diabetic peripheral angiopathy without gangrene; R65.20 Severe sepsis without septic shock; R04.2 Hemoptysis; F29 Unspecified psychosis not due to a substance or known physiological condition; J69.0 Pneumonitis due to inhalation of food and vomit; G92 Toxic encephalopathy; E11.621 Type 2 diabetes mellitus with foot ulcer; Z99.2 Dependence on renal dialysis; Z99.3 Dependence on wheelchair; Z90.710 Acquired absence of both cervix and uterus; Z89.511 Acquired absence of right leg below knee; Z86.73 Personal history of transient ischemic attack (TIA), and cerebral infarction without residual deficits; Z88.8 Allergy status to other drugs, medicaments and biological substances; Z79.891 Long term (current) use of opiate analgesic; Z79.899 Other long term (current) drug therapy; Z90.49 Acquired absence of other specified parts of digestive tract; Z78.1 Physical restraint status
CPT/HCPCS: 31500; 36415; 36600; 71045; 71275; 76937; 80048; 80053; 80061; 80202; 82040; 82140; 82330; 82375; 82550; 82553; 82805; 82962; 83036; 83735; 83880; 83970; 84100; 84134; 84478; 84484; 85025; 85379; 85384; 87070; 87635; 93005; 93970; 94002; 94003; 94640; 94667; 96365; 96366; 96368; 96372; 97161; 99285; C1725; C1752; C1769; C9113; J0456; J0696; J0885; J1200; J1644; J1650; J2060; J2250; J2370; J2543; J2704; J2765; J2997; J3010; J3370; J3490; J7050; J7060; J7608; P9047; Q9967